=== PATIENT | female | born 1950 | race Caucasian/White ===

== ENCOUNTER 2023-01-30 21:01 | Inpatient (IN) | payer OTHER ==
[2023-01-30 21:06] VITALS: BMI 42.5
[2023-01-30] MEDS ORDERED: SODIUM CHLORIDE 3,266 ML IV ONE (21:13)
[2023-01-30] MEDS ORDERED: ACETAMINOPHEN 1000 MG/100 ML BAG IVPB ONE (21:33)
[2023-01-30 21:55] LABS: BASO % 0.4 % (0-2.0); EOS % 0.2 % (0-4.5); HEMOGLOBIN 13.7 GM/dL (10.7-15.3); LYMPH % 9.5 % (8-40); MCHC 33.5 g/dl (32.0-36.0); MEAN CELL VOLUME 89.5 fl (80-96); MEAN PLT VOLUME 9.1 fl (7.5-11.1); MONO % 5.4 % (3.8-10.2); NEUT % 84.5 % (42.8-82.8); PLATELET COUNT 194 10^3/uL (134-434); RBC 4.58 M/mm3 (3.60-5.2); RDW 13.5 % (11.6-15.6); WHITE BLOOD COUNT 12.3 K/mm3 (4.0-10.0)
[2023-01-30 22:00] LABS: VENOUS BASE EXCESS -0.8 mmol/L (-2-2); VENOUS O2 SATURATION 82.7 % (70-80); VENOUS PCO2 33.9 mmHg (38-52); VENOUS PH 7.442 (7.310-7.410)
[2023-01-30 22:09] LABS: INR 1.87 (0.83-1.09); PROTHROMBIN TIME (PATIENT) 21.6 SEC (9.7-13.0)
[2023-01-30 22:12] LABS: ACTIVATED PTT 38.8 SECONDS (25.2-36.5)
[2023-01-30 22:28] LABS: CHLORIDE 107 mmol/L (98-107); POTASSIUM 4.2 mmol/L (3.5-5.1); SODIUM 140 mmol/L (136-145)
[2023-01-30 22:30] LABS: CALCIUM 8.3 mg/dL (8.5-10.1)
[2023-01-30 22:31] LABS: ALBUMIN 3.5 g/dl (3.4-5.0); BLOOD UREA NITROGEN 17.7 mg/dL (7-18); GLUCOSE,RANDOM 150 mg/dL (74-106)
[2023-01-30] MEDS ORDERED: ACETAMINOPHEN INJECTION 100 ML IVPB ONE (22:31)
[2023-01-30 22:34] LABS: CREATININE 0.9 mg/dL (0.55-1.3); SGOT/AST 40 U/L (15-37); SGPT/ALT 39 U/L (13-61)
[2023-01-30 22:36] LABS: BILIRUBIN,TOTAL 0.7 mg/dL (0.2-1); TOT PROT 6.9 g/dl (6.4-8.2)
[2023-01-30 22:37] LABS: ALK PHOS 93 U/L (45-117)
[2023-01-30 22:41] LABS: ANION GAP 9 MMOL/L (8-16); CO2 25 mmol/L (21-32)
[2023-01-30] MEDS ORDERED: SODIUM CHLORIDE 0.9% 500 ML INFUS.BAG IV ONE ×2 (22:59)
[2023-01-31 02:06] VITALS: BP 134/65; PULSE 94; RESP 18; TEMP 98.1
== END 2023-01-31 03:30 | disposition left against medical advice (07) | DRG 308 ==
LOC: JER 21:01 → JERBED 01-31 01:38
PROVIDERS: ADMIT Internal Medicine; ATTEND Internal Medicine
DX: I48.91 Unspecified atrial fibrillation (principal); U07.1 COVID-19; I10 Essential (primary) hypertension; E78.5 Hyperlipidemia, unspecified; R53.1 Weakness; R50.9 Fever, unspecified
CPT/HCPCS: 0241U-QW; 36415; 71045-TC-FY; 80053; 82550; 82553; 82803; 83605; 84484; 85025; 85610; 85730; 86850; 86900; 86901; 87040; 93005; 93010; 99291